=== PATIENT | female | born 1965 | race Caucasian/White ===

== ENCOUNTER 2025-05-23 06:37 | Emergency (ER) | payer BC, SELFPAY ==
[2025-05-23] VITALS (14 sets, daily range): BP systolic 129–166; BP diastolic 82–107; PULSE 56–73; RESP 10–24; TEMP 36.7; O2SAT 95–98; BMI 26.2
--- OUTSIDE RECORDS SUMMARY | 2025-05-23 06:38 | XMS_ITS | Clinical Summary ---
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 08/07/2016 Active psyllium husk (METAMUCIL) 3.4 gram/5.4 gram powd Take 1 scoop by mouth once daily. 0 10/03/2018 Active calcium carbonate (CALCIUM 300 ORAL) Take 600 mg by mouth. Active lisinopriL (PRINIVIL; ZESTRIL) 20 mg tabletIndication s:HTN (hypertension), benign Take 1 Tablet (20 mg) by mouth once daily. 90 Tablet 3 10/23/2024 Active omeprazole (PRILOSEC) 20 mg Delayed-Release capsuleIndicatio ns:Gastroesophag eal reflux disease without esophagitis Take 1 Capsule (20 mg) by mouth once daily before a meal. 90 Capsule 2 10/23/2024 Active Active Problems Problem Noted Date Diagnosed Date Aneurysm of ascending aorta without rupture 12/06 Overview (12/27/2024): Repeat echo 12/2027 High-risk human papillomavir us (HPV) DNA detected in cervical specimen, not type 16 or 18 10/03/2018 Overview (01/30/2025): 09/2018 NIL/HPV+, HPV 16/18 negative 10/2019 NIL/HPV negative 10/2022 UNS/HPV+, HPV 16/18 negative 10/2023 NIL/HPV+, HPV 16/18 negative 01/2024 Holder: Biopsy Benign 10/2024 UNS/HPV negative 01/2025 NIL/HPV negative Plan: HPV-based testing due 01/2028 Non-celiac gluten sensitivity 07/26/2017 Colon polyps 02/17/2016 Right knee pain 02/17/2016 Family history of colonic polyps 02/17/2010 HTN (hypertension), benign 01/18/2009 INCONTINENCE, FEMALE STRESS 12/14/2001 REFLUX, ESOPHAGEAL 12/14/2001 Resolved Problems Problem Noted Date Diagnosed Date Resolved Date Acute conjunctivitis, right eye 07/27/2015 02/17/2016 Pain in right eye 07/27/2015 02/17/2016 Stressful life event affecting family 09/21/2012 02/17/2016 TONSILLITIS - ACUTE 10/06/2005 01/19/20 09 INSECT BITE 03/30/2005 01/18/2009 HX, FAMILY, ISCHEMIC HEART DISEASE 12/14/2001 02/17/2016 Excessive or frequent menstruation 12/13/2001 12/07/2012 Immunizations Immunization Administration Dates Next Due AMB INFLUENZA, IIV4 (AGE=>6M OS) MDV (Flu Clinic Only) 06/20/2019,05/21/2017 COVID-19 vaccine (Moderna 100mcg/0.5mL) PF, MDV 01/09/2021,12/11/2020 COVID-19 vaccine (Moderna 50mcg/0.5mL) 12YO+ BIVALENT PF, MDV 06/01/2022 HepA-HepB (Twinrix) 05/14/2014 Hepatitis B (Adult) 06/11/2014 Influenza A (H1N1), Inactiva jessica (Age >=3 Years) 05/07/2013 Influenza Virus, Unspecified 05/19/2011 Influenza, CCIIV3 (Age >=6 M O) (Egg Free) 05/13/2024 Influenza, IIV3 (Age >=3 years) 05/20/2012 Influenza, IIV4 06/01/2022, 2,07/24/2020,2015,06/11/2014 Influenza, IIV4 (=>6mos) MDV 06/05/2018 Influenza,CCIIV4 PRESERV FREE 08/01/2023 Td (Age >=7 Years) 09/06/1992 Tdap 10/16/2022,09/21/2012 Typhoid (injectable) 05/14/2014 Zoster (Shingrix-RZV, recombinant) 12/19/2021, Family History Medical History Relation Name Comments Other Brother 3 Ricky Rebolledo knee replaceme nt Other Brother 4 Griffin Rebolledo colon polyps Hypertension Brother 5 Augie Rebolledo Good Health Daughter Macular degeneration Father Other Father colon polyposis /Macular Degeneration/cat Cancer-breast Maternal Aunt dx. age 50 Diabetes Maternal Grandmother Kim Macias Diabetes Mother Malissa Rebolledo Genetic Other mother: HTN, osteoporosis~father: macular degeneration~sibs: A\T\W~kids: A\T\W~grprs: MGM: DM, CVA; MGF: HTN; PGF: renal problems, at young age with that; PGM: colon CA~M Aunt: breast CA, rosacea Cancer-colon Paternal Grandmother Ember Vierboom Good Health Sister 1 Emily Adamek Hyperlipidemia Sister 2 Neredia Brown Hypertension Sister 3 Loraine Smid Thyroid Disease Sister 4 Kimmie Pumper Good Health Son 1 Good Health Son 2 Cancer-ovarian No Family History Relation Name Status Comments Brother 1 Ba Rebolledo Alive Brother 2 Jovanny Rebolledo Alive Brother 3 Ricky Rebolledo Alive Brother 4 Griffin Rebolledo Alive Brother 5 Augie Rebolledo Alive Daughter Alive Father Maternal Aunt dx. age 50 Maternal Grandfather Maternal Grandmother Kim Macias Mother Malissa Rebolledo Other Paternal Grandfather Paternal Grandmother Ember Vierboom Sister 1 Emily Adamek Alive Sister 2 Nereida Brown Alive Sister 3 Loraine Smid Alive Sister 4 Kimmie Pumper Alive Son 1 Alive Son 2 Alive Social History Tobacco Use Types Packs/Day Years Used Date Smoking Tobacco: Never Passive Smoke Exposure: Never Smokeless Tobacco: Never Tobacco Cessation:Counseling Given: Not Answered Alcohol Use Standard Drinks/Week Comments Yes 2 (1 standard drink = 0.6 oz pur e alcohol) social PHQ-2 Answer Date Recorded PHQ-2 TOTAL SCORE 0 10/16/2022 Social Connections Answer Date Recorded Do you often feel lonely or isolated from those around you? 0 10/23/2024 Financial Resource Strain Answer Date R ecorded Difficulty of Paying Living Expenses 3 10/23/2024 Difficulty of Paying Living Expenses Not on file 10/23/2024 Food Insecurity Answer Date Recorded Do you worry your food will run out before you are able to buy more? 1 10/23/2024 Transportation Needs Answer Date Record ed Does lack of transportation keep you from medica l appointments? 1 10/23/2024 Does lack of transportation keep you from work, meetings or getting things that you need? 1 10/23/2024 Housing Stability Answer Date Recorded What is your housing situation today? 1 10/23/2024 Utilities Answer Date Recorded Do you have trouble paying f or utilities (for example, heat, electricity, water, phone)? 1 10/23/2024 Comments No Sex and Gender Information Value Date Recorded Sex Assigned at Not on file Legal Sex Female 5:25 AM WELDING SPECIALIST Gender Identity Not on file Sexual Orientation Not on file Obstetrics History Para Term AB IAB SAB Ectopic Multiple Livin g Live Births 3 3 3 0 0 0 0 0 3 Date Outcome GA Total Labor Labor/2nd/3rd Weight Sex Type Anes PTL Zeinab A1 A5 Name Clin Term Term Term Last Filed Vital Signs Vital Sign Reading Time Taken Comments Blood Pressure 117/83 01/10/2025 2:18 PM CDT Pulse 71 01/10/2025 2:18 PM CDT Temperature 36.8 C (98.3 F) 04/12/2023 2:47 PM CDT Respiratory Rate 18 04/12/2023 2:47 PM CDT Oxygen Saturation 96% 01/10/2025 2:18 PM CDT Inhaled Oxygen Concentration - - Weight 81.6 kg (180 lb) 10/23/2024 8:02 AM WELDING SPECIALIST Height 171.8 cm (5' 7.62) 10/23/2024 8:02 AM CS T Body Mass Index 27.68 10/23/2024 8:02 AM WELDING SPECIALIST Plan of Treatment Health Maintenance Due Date Last Done Comments Pneumococcal series for age 50+ (1 of 1 - PCV) 2013 Hepatitis B series for 19+ ( 3 of 3 - 19+ 3-dose series) 11/11/2014 06/11/2014, 05/14/2014 Depression screening for age 12+ 10/16/2023 10/16/2022, 09/26/2021, 06/23/2021, Additional history exists Influenza Vaccine (#1) 2025 , 08/01/2023, 06/01/2022, Additional history exists BMI (ht and wt on same day) for age 18+ 10/23/2025 10/23/2024, 10/20/2023, 04/12/2023, Additional history exists Mammogram for age 45-75 10/23/2025 10/23/19, 10/20/2023, 10/16/2022, Additional history exists Pap test for age 21-65 01/11/2028 , 01/10/2025, 10/23/2024, Additional history exists Lipids for age 45-75 10/25/2028 10/25/2023, 10/16/2022, 10/16/2019, Additional history exists Colonoscopy through age 75 05/03/203005/03, 05/01/2020, 09/22/2016, Additional history exists Tetanus booster 10/16/2032 10/16/2022, 09/06, 09/06/1992 RSV vaccine for adults or (1 - 1-dose 75+ series) 2038 Hepatitis C screening for ag e 18-79 Completed 01/04/2014 Zoster (shingles) series for age 50+ Completed 12/19/2021, 09/26/2021 HIV for age 15-65 Completed 10/16/2022 COVID-19 vaccine series Completed 05/13/20 24, 08/01/2023, 06/01/2022, Additional history exists Procedures Procedure Name Priority Date/Time Associated Diagnosis Comments SCAN-COLONOSCOPY 05/03/2025 8:00 AM CDT HPV HIGH RISK Routine 01/10/2025 2:33 PM CDT Screening for cervical cancer XR MAMMO BILAT SCREENING Routine 10/23/2024 9:01 AM WELDING SPECIALIST Visit for screening mammogram LIPID PANEL W REFLEX MEASURED LDL Routine 10/25/2023 7:25 AM WELDING SPECIALIST Lipid screening LC HIV-1/O/2, 4TH GENERATION Routine 10/16/2022 2:55 PM WELDING SPECIALIST Screening for HIV (human immunodeficiency virus) ANTI HCV Routine 01/04/2014 9:30 AM CDT Annual physical exam from Last 3 Months or Most Recently Relevant to Health Maintenance Results * SCAN-COLONOSCOPY (05/03/2025 8:00 AM CDT) Narrative Procedure Note Raul Vaughn MD - 05/03/2025 7:12 AM CDT [address], [address], [place] [address] Patient Name: Nida Wilkins Gender: Female Exam Date: 05/03/2025 Visit Number: [id number] Age: 59 Years Date of : 1965 Attending MD: Raul Vaughn MD Medical Record#: [id number] Procedure: Colonoscopy Indications: Previous advanced adenomatous polyp(s) Referring MD: Referral Self Primary MD: Renee Mcdaniel MD Medications: Admitting Medications: 0.9% Normal Saline at [facility] Intra Procedure Medications: Patient received monitored anesthesia care. Complications: No immediate complications Procedure: An examination of the heart and lungs was performed and found to be withinacceptable limits. . The patient was therefore deemed a reasonablecandidate for endoscopy and sedation. The risks and benefits of the procedure were explained to thepatient.After obtaining informed consent, the patient received monitoredanesthesia care and I passed the scope without difficulty via the rectum to the ileum. The appendiceal orificeand ic valve were identified. The scope was retroflexed during theexamination The quality of the prep was excellent (Miralax/Gatorade/2tablets Bisacodyl/Magnesium Citrate). This was a complete examination throughout the entire colon. Findings: Normal finding. Location - ileum 3-cm. Polyp location: descending colon. Quantity: 1. Size: 3 mm. Polypshape: sessile. Maneuver: polypectomy was performed with a cold snare. Removal: complete. Retrieval: complete. Bleeding: none. Diverticulosis. Location: - sigmoid. Description: mild. Noinflammation present. Anal canal: external hemorrhoid(s) Remainder of the exam is normal. Impression: Colorectal polyp detected on colonoscopy Diverticulosis of colon without diverticulitis Hemorrhoids, external MD impression comments: History of advanced polyps. Preliminary Plan: Repeat colonoscopy in 5 years Recommendation Comments: Diverticulosis present: we recommend to increasefiber Intake. Foods high in fiber include fruits, vegetables, wholegrains, and legumes. Aim for 25-30 grams of fiber per day. First-degree relatives should start screening for colorectal cancer at theage of 40 rather than 45. This includes kids and siblings. Pathology Results: A: COLON, DESCENDING, POLYP: 1. Tubular adenoma 2. Negative for high grade dysplasia 3. Per the colonoscopy report: a. Polyp size: 3 mm b. Resection: Complete c. Retrieval: Complete MICROSCOPIC A: Performed SPECIAL STAINING/DEEPER A: Deeper Electronically signed by: Zeenat Madrid MD Interpreted at [facility], [address] [place] [id number] Orders Diagnostics: Procedure Comments Timeframe Assessment Colonoscopy 5 Years K63.5 Instruction(s)/Education: Instruction/Education Timeframe Assessment Colon Cancer Prevention K63.5 Colon Polyps K63.5 Diverticulosis/Diverticulitis K63.5 Hemorrhoids (External) K63.5 High Fiber Diet K63.5 Final Plan: Repeat colonoscopy in 5 years. We will attempt to contact you at appropriate intervals via U.S. mail. Wemay not be able to find you or contact you at that time, therefore youshould know that the responsibility for following our recommendation restswith you. If you don't hear from us at the time your procedure is due,please contact our office to schedule an appointment. If your contactinformation should change, please contact our office so that we can updateyour record. _Electronically signed by: Raul Vaughn MD 05/03/2025 cc: Renee Mcdaniel MD Raul Vaughn MD OTHER Final Resul t * HPV HIGH RISK (01/10/2025 2:33 PM CDT) TYPE 16 Negative Negative 01/15/2025 2:33 PM CDT [facility] TYPE 18 Negative Negative 01/15/2025 2:33 PM CDT [facility] OTHER HIGH RISK TYPES Negative Negative 01/15/2025 2:33 PM CDT [facility] Other (Cervical) Non-Blood / Unknown 01/10/2025 2:33 PM CDT 01/11/2025 3:43 PM CDT Narrative [facility] - 01/15/2025 2:33 PM CDT HPV types 16, 18, 31, 33, 35, 39, 45, 51, 52, 56, 58, 59, 66 and 68 DNA were undetectable or below the pre-set threshold. Methodology: Meryl Quang 4800 HPV Test Renee Mcdaniel MD MICROBIOLOGY Final R esult [facility] [address] [place] [address], [place] * XR MAMMO BILAT SCREENING (10/23/2024 9:01 AM WELDING SPECIALIST) Anatomical Region Laterality Modality BREASTS, Breast Left, Breast Right Bilateral Mammography Impressions 10/24/2024 3:11 PM WELDING SPECIALIST There is no radiographic evidence for malignancy. Recommend annual mammograms. MAMMOGRAM ASSESSMENT: ACR 1 Negative PATIENTS: You will also receive a letter with your examination results in an easy to read format. If you have questions about your results, please contact your referring provider. Narrative 10/24/2024 3:11 PM WELDING SPECIALIST For Patients: As a result of the 21st Century Cures Act, medical imaging exams and procedure reports are released immediately into your electronic medical record. You may view this report before your referring provider. If you have questions, please contact your health care provider. XR MAMMO BILAT SCREENING [[id number]] CLINICAL HISTORY: This is an asymptomatic 59 y.o. patient. INDICATION FOR EXAM: Mammogram Screening. TECHNIQUE: CC & MLO views were obtained. This study was evaluated with the assistance of Computer-Aided Detection. COMPARISON FILM: Yes 10/20/23 [facility] 10/16/22 [facility] FINDINGS: There are scattered areas of fibroglandular density. There are no dominant masses, suspicious micro calcifications or areas of architectural distortion. us Renee Mcdaniel MD MAMMO Final R esult * (ABNORMAL) LIPID PANEL W REFLEX MEASURED LDL (10/25/2023 7:25 AM WELDING SPECIALIST) CHOLESTEROL,TOTAL 247(H) 100 - 199 mg/dL 10/25/2023 2:26 PM [facility] Comment: Cholesterol, Total Reference Ranges Desirable <200 mg/dL Borderline 200-239 mg/dL High >=240 mg/dL TRIGLYCERIDES 180(H) <150 mg/dL 10/25/2023 2:26 PM [facility] HDL CHOLESTEROL 56 >40 mg/dL 2:26 PM [facility] NON-HDL CHOLESTEROL 191(H) <145 mg/dl 10/25/2023 2:26 PM [facility] CHOL/HDL RATIO 4.41 <4.50 10/25/2023 2:26 PM [facility] LDL CHOLESTEROL 155(H) <=130 mg/dL 10/25/2023 2:26 PM [facility] VLDL CHOLESTEROL 36(H) <=30 mg/dL 10/25/2023 2:26 PM [facility] PROVIDER ORDERED STATUS RANDOM 10/25/2023 2:26 PM [facility] Blood BLOOD SPECIMEN / Unknown Venipuncture / Unknown 10/25/2023 7:25 AM WELDING SPECIALIST 10/25/2023 7:28 AM WELDING SPECIALIST Renee Mcdaniel MD CHEMISTRY Final R esult [facility] [address] [place] [address], [place] * LC HIV-1/O/2, 4TH GENERATION (10/16/2022 2:55 PM WELDING SPECIALIST) Pathologist [facility] HIV Scr 4th Gen Non Reactive Non Reactive 10/21/2022 6:09 AM WELDING SPECIALIST [facility]) Comment: HIV Negative HIV-1/HIV-2 antibodies and HIV-1 p24 antigen were NOT detected. There is no laboratory evidence of HIV infection. Blood BLOOD SPECIMEN / Unknown Venipuncture / Unknown 10/16/2022 2:55 PM WELDING SPECIALIST 10/16/2022 2:57 PM WELDING SPECIALIST Narrative [facility] - 10/21/2022 6:09 AM WELDING SPECIALIST Performed at: [address] [place] [address] [address] [id number] Wooden Fence Erector: Rafael Rizzo MD, Phone: [phone] Renee Mcdaniel MD LABORATORY Final R esult [facility] ([facility]) [address] [place] [id number], [place] * ANTI HCV (01/04/2014 9:30 AM CDT) Pathologist [facility] HEPATITIS C ANTIBODY Non-Reacti ve Non-Reacti ve 01/04/2014 3:40 PM CDT [facility] Blood specimen (specimen) BLOOD SPECIMEN / Unknown Venipuncture / Unknown 01/04/2014 9:30 AM CDT 01/04/2014 9:30 AM CDT Narrative [facility] - 01/04/2014 3:40 PM CDT Antibodies to HCV not detected; does not exclude the possibility of exposure to HCV. us Alaina Krishnan SEND OUTS Final Result [facility] [address] [place] [address], [place] from Last 3 Months or Most Recently Relevant to Health Maintenance Insurance [facility] FED EMP [facility] FED EMP Care Teams Laundry Superintendent Relationship Specialty Start Date End Date Renee Mcdaniel MD PCP - General Family Practice 06/12/20
--- NOTE | 2025-05-23 06:51 | ED.CHESTPAIN ---
HPI - Chest Pain General Time Seen by Provider: 06:52 <Shankar Deras MD - Last Filed: 05/30/25 23:27> Date Seen: 05/23/25 <Shankar Deras MD - Last Filed: 05/30/25 23:27> Chief Complaint: Chest Pain <Shankar Deras MD - Last Filed: 05/30/25 23:27> Stated Complaint: Chest pain <Shankar Deras MD - Last Filed: 05/30/25 23:27> Time Seen by Provider: 05/23/25 06:51 <Shankar Deras MD - Last Filed: 05/30/25 23:27> Source: patient, RN notes reviewed and old records reviewed <Shankar Deras MD - Last Filed: 05/30/25 23:27> Mode of arrival: ambulatory <Shankar Deras MD - Last Filed: 05/30/25 23:27> Limitations: no limitations <Shankar Deras MD - Last Filed: 05/30/25 23:27> History of Present Illness HPI narrative: 59-year-old female who presents today with chest pain. Patient woke up with left-sided chest pain approximately 5:00 a.m., constant although quite positional, worse with movement, no shortness of breath, no cough. The pain does occasionally get worse with breathing. No nausea, vomiting, diarrhea, pain does not radiate. Pain described as sharp. <Shankar Deras MD - Last Filed: 05/30/25 23:27> Related Data Home Medications: Home Medications ?Medication ?Instructions ?Recorded ?Confirmed cetirizine 10 mg tablet 10 mg PO 04/23/22 04/23/22 lisinopril 20 mg tablet 20 mg PO 04/23/22 04/23/22 omeprazole 20 mg capsule,delayed 20 mg PO 04/23/22 04/23/22 release prednisone 20 mg tablet 60 mg PO QDAY 04/23/22 04/23/22 Previous Rx's ?Medication ?Instructions ?Recorded hydroxyzine HCl 10 mg tablet 10 mg PO TID PRN itching #30 tabs 04/23/22 triamcinolone acetonide 0.1 % 1 applic topical BID #30 grams 04/23/22 topical cream triamcinolone acetonide 0.1 % 1 applic topical BID #454 grams 04/23/22 topical cream <Shankar Deras MD - Last Filed: 05/30/25 23:27> Allergies/Adverse Reactions: Allergies Allergy/AdvReac Type Severity Reaction Status Date / Time gluten AdvReac Intermediate Abdominal Verified 05/23/25 06:48 Pain <Shankar Deras MD - Last Filed: 05/30/25 23:27> PFSH PFS Medical History: Medical History (Updated 05/23/25 @ 11:23 by Jessie Aguilera MD) Urticaria ?L50.9 - Urticaria, unspecified (ICD-10) <Shankar Deras MD - Last Filed: 05/30/25 23:27> Social History: Social History Smoking Status: Never smoker Do you use any of these nicotine containing products: None How often do you have a drink containing alcohol: never AUDIT-C Alcohol total score: 0 Non-prescribed substance use: denies use service: No <Shankar Deras MD - Last Filed: 05/30/25 23:27> Exam Narrative Exam Narrative: General: Well-developed and well-nourished, no acute distress Head: Atraumatic and normocephalic Eyes: Pupils are equal reactive, extraocular motions intact, conjunctiva clear ENT: External nose and ears are normal, posterior pharynx without erythema or exudate Neck: No midline cervical tenderness, full spontaneous range of motion the neck, trachea midline, no adenopathy Heart: Regular rate and rhythm no murmurs or thrills Lungs: Clear to auscultation bilaterally without wheezes or crackles Abdomen: Soft, nontender, nondistended with active bowel sounds Musculoskeletal: No tenderness, deformity, or edema Neurologic: Awake, alert, and oriented x3, no gross focal neurologic deficits, cranial nerves intact as tested Psych: Mood and affect are appropriate Skin: No rashes <Shankar Deras MD - Last Filed: 05/30/25 23:27> Const Vital Signs, click to edit/add: Vital Signs - 24 hr 05/23/25 06:45 05/23/25 07:55 05/23/25 08:00 Temperature 98.1 F Pulse Rate 62 Pulse Rate [Pulse Oximeter] 64 Respiratory Rate 18 15 14 Blood Pressure Blood Pressure [Right Upper Arm] 166/107 H Pulse Oximetry 98 96 Oxygen Delivery Method Room Air 05/23/25 08:15 05/23/25 08:30 05/23/25 08:45 Temperature Pulse Rate 60 63 69 Pulse Rate [Pulse Oximeter] Respiratory Rate 16 15 10 L Blood Pressure Blood Pressure [Right Upper Arm] Pulse Oximetry 97 96 97 Oxygen Delivery Method 05/23/25 09:00 05/23/25 09:15 05/23/25 09:30 Temperature Pulse Rate 56 L 56 L 64 Pulse Rate [Pulse Oximeter] Respiratory Rate 13 12 12 Blood Pressure Blood Pressure [Right Upper Arm] Pulse Oximetry 96 96 96 Oxygen Delivery Method 05/23/25 09:45 05/23/25 10:00 05/23/25 10:15 Temperature Pulse Rate 61 73 67 Pulse Rate [Pulse Oximeter] Respiratory Rate 15 24 20 Blood Pressure Blood Pressure [Right Upper Arm] Pulse Oximetry 96 96 95 Oxygen Delivery Method 05/23/25 10:30 05/23/25 10:39 Temperature Pulse Rate 62 58 L Pulse Rate [Pulse Oximeter] Respiratory Rate 15 12 Blood Pressure 129/82 Blood Pressure [Right Upper Arm] Pulse Oximetry 96 96 Oxygen Delivery Method <Shankar Deras MD - Last Filed: 05/30/25 23:27> Vital Signs - 24 hr 05/23/25 06:45 05/23/25 07:55 05/23/25 08:00 Temperature 98.1 F Pulse Rate 62 Pulse Rate [Pulse Oximeter] 64 Respiratory Rate 18 15 14 Blood Pressure Blood Pressure [Right Upper Arm] 166/107 H Pulse Oximetry 98 96 Oxygen Delivery Method Room Air 05/23/25 08:15 05/23/25 08:30 05/23/25 08:45 Temperature Pulse Rate 60 63 69 Pulse Rate [Pulse Oximeter] Respiratory Rate 16 15 10 L Blood Pressure Blood Pressure [Right Upper Arm] Pulse Oximetry 97 96 97 Oxygen Delivery Method 05/23/25 09:00 05/23/25 09:15 05/23/25 09:30 Temperature Pulse Rate 56 L 56 L 64 Pulse Rate [Pulse Oximeter] Respiratory Rate 13 12 12 Blood Pressure Blood Pressure [Right Upper Arm] Pulse Oximetry 96 96 96 Oxygen Delivery Method 05/23/25 09:45 05/23/25 10:00 05/23/25 10:15 Temperature Pulse Rate 61 73 67 Pulse Rate [Pulse Oximeter] Respiratory Rate 15 24 20 Blood Pressure Blood Pressure [Right Upper Arm] Pulse Oximetry 96 96 95 Oxygen Delivery Method 05/23/25 10:30 05/23/25 10:39 Temperature Pulse Rate 62 58 L Pulse Rate [Pulse Oximeter] Respiratory Rate 15 12 Blood Pressure 129/82 Blood Pressure [Right Upper Arm] Pulse Oximetry 96 96 Oxygen Delivery Method <Jessie Aguilera MD - Last Filed: 05/23/25 11:30> Course Course ED Course: Reviewed prior urgent care note from April 2020 for when patient was seen with urticaria, discharged with instructions for symptom management. Also reviewed prior office visit from January 2025 which was for routine physical exam, noted at that time to have history of reflux. EKG independently interpreted by me performed at 6:44 a.m. with normal sinus rhythm rate 69, normal intervals, normal axis, QTC 439, LA 150, no acute ST changes, no prior for comparison. Patient seen examined, presents today with left-sided chest pain which isn't really about for specific spots on the left side of the chest. Somewhat positional, nonradiating, causes shortness of breath when the pain is severe. No cough. On exam, hypertensive but otherwise finally stable, pain is not review do so. EKG is normal, labs ordered including troponin and D-dimer. Symptoms not typical for ACS in will evaluate for other causes of well, aspirin and troponin ordered. <Shankar Deras MD - Last Filed: 05/30/25 23:27> Reevaluation(s) Time of Reevaluation #1: 07:50 <Shankar Deras MD - Last Filed: 05/30/25 23:27> Reevaluation #1: Labs independently interpreted by me with negative troponin, normal CBC. Remaining labs including D-dimer are pending. Sign out to oncoming provider. <Shankar Deras MD - Last Filed: 05/30/25 23:27> Time of Reevaluation #2: 11:27 <Jessie Aguilera MD - Last Filed: 05/23/25 11:30> Reevaluation #2: Have reviewed with patient that her heart enzymes are remaining normal. She has no evidence of arrhythmia, D-dimer was normal. She feels better, states she can take a deep breath without pain now. We did review possibility of musculoskeletal etiologies, possible early pleurisy. Plan will be to discharge to home at this point, can try Tylenol and/or ibuprofen if needed for symptom control. We did discuss the need to follow up in clinic with her primary, consider cardiac stress testing. <Jessie Aguilera MD - Last Filed: 05/23/25 11:30> Vital Signs Vital signs: Initial Vital Signs Temperature 98.1 F 05/23/25 06:45 Temperature Source Temporal Artery Scan 05/23/25 06:45 Pulse Rate 64 05/23/25 06:45 Pulse Rhythm Regular 05/23/25 06:45 Respiratory Rate 18 05/23/25 06:45 Blood Pressure 166/107 H 05/23/25 06:45 Blood Pressure Mean 126 H 05/23/25 06:45 Blood Pressure Position Sitting 05/23/25 06:45 Pulse Oximetry 98 05/23/25 06:45 Oxygen Delivery Method Room Air 05/23/25 06:45 Vital Signs Temperature 98.1 F 05/23/25 06:45 Pulse Rate 64 05/23/25 06:45 Respiratory Rate 18 05/23/25 06:45 Blood Pressure 166/107 H 05/23/25 06:45 Pulse Oximetry 98 05/23/25 06:45 Oxygen Delivery Method Room Air 05/23/25 06:45 Temperature 98.1 F 05/23/25 06:45 Pulse Rate 58 L 05/23/25 10:39 Respiratory Rate 12 05/23/25 10:39 Blood Pressure 129/82 05/23/25 10:39 Pulse Oximetry 96 05/23/25 10:39 Oxygen Delivery Method Room Air 05/23/25 06:45 <Shankar Deras MD - Last Filed: 05/30/25 23:27> Initial Vital Signs Temperature 98.1 F 05/23/25 06:45 Temperature Source Temporal Artery Scan 05/23/25 06:45 Pulse Rate 64 05/23/25 06:45 Pulse Rhythm Regular 05/23/25 06:45 Respiratory Rate 18 05/23/25 06:45 Blood Pressure 166/107 H 05/23/25 06:45 Blood Pressure Mean 126 H 05/23/25 06:45 Blood Pressure Position Sitting 05/23/25 06:45 Pulse Oximetry 98 05/23/25 06:45 Oxygen Delivery Method Room Air 05/23/25 06:45 Vital Signs Temperature 98.1 F 05/23/25 06:45 Pulse Rate 64 05/23/25 06:45 Respiratory Rate 18 05/23/25 06:45 Blood Pressure 166/107 H 05/23/25 06:45 Pulse Oximetry 98 05/23/25 06:45 Oxygen Delivery Method Room Air 05/23/25 06:45 Temperature 98.1 F 05/23/25 06:45 Pulse Rate 58 L 05/23/25 10:39 Respiratory Rate 12 05/23/25 10:39 Blood Pressure 129/82 05/23/25 10:39 Pulse Oximetry 96 05/23/25 10:39 Oxygen Delivery Method Room Air 05/23/25 06:45 <Jessie Aguilera MD - Last Filed: 05/23/25 11:30> Medications Administered Medications: Discontinued Medications Generic Name Dose Route Start Last Admin Trade Name Freq PRN Reason Stop Dose Admin Aspirin 324 mg 05/23/25 07:01 05/23/25 07:08 Aspirin 81 Mg Tab.Chew PO 05/23/25 07:02 324 mg ONCE ONE Administration Ketorolac Tromethamine 15 mg 05/23/25 07:01 05/23/25 07:24 Ketorolac 15 Mg/Ml Inj IVP 05/23/25 07:02 15 mg ONCE ONE Administration <Shankar Deras MD - Last Filed: 05/30/25 23:27> Discontinued Medications Generic Name Dose Route Start Last Admin Trade Name Freq PRN Reason Stop Dose Admin Aspirin 324 mg 05/23/25 07:01 05/23/25 07:08 Aspirin 81 Mg Tab.Chew PO 05/23/25 07:02 324 mg ONCE ONE Administration Ketorolac Tromethamine 15 mg 05/23/25 07:01 05/23/25 07:24 Ketorolac 15 Mg/Ml Inj IVP 05/23/25 07:02 15 mg ONCE ONE Administration <Jessie Aguilera MD - Last Filed: 05/23/25 11:30> MDM - Chest Pain Lab Data Attestation: I reviewed the patient's lab results. <Jessie Aguilera MD - Last Filed: 05/23/25 11:30> Labs: Lab Results 05/23/25 05/23/25 05/23/25 Range/Units 07:01 07:25 10:01 WBC 4.37 L (4.50-11.00) K/uL RBC 4.66 (4.00-5.20) m/uL Hgb 14.0 (12.0-16.0) gm/dL Hct 40.1 (33.0-51.0) % MCV 86 (80-100) fL MCH 30 (26-34) pg MCHC 35 (32-36) gm/dL RDW Coeff of Willie 11.8 (11.5-15.5) % Plt Count 192 (140-440) K/uL Neut % (Auto) 45.3 (42.0-72.0) % Lymph % (Auto) 42.1 (20-44) % Crockett % (Auto) 8.0 (0.0-11.0) % Eos % (Auto) 3.7 (0.0-7.0) % Baso % (Auto) 0.7 (0.0-3.0) % Neut # (Auto) 2.00 (1.7-7.0) K/uL Lymph # (Auto) 1.80 (0.90-2.90) K/uL Crockett # (Auto) 0.30 (0.00-0.90) K/UL Eos # (Auto) 0.20 (0.00-0.50) K/uL Baso # (Auto) 0.00 (0.00-0.30) K/uL Abs Immat Gran (auto) 0.00 (0.00-0.30) K/uL Imm/Tot Granulo (auto) 0.2 % D-Dimer Quant (PE/DVT) < 0.27 (0.00-0.50) ug/ml Sodium 139 (135-149) mmol/L Potassium 4.5 (3.6-5.1) mmol/L Chloride 104 (96-114) mmol/L Carbon Dioxide 29 (20-32) mmol/L Anion Gap 6 L (7-15) mEq/L BUN 16 (7-30) mg/dL Creatinine 0.8 (0.5-1.5) mg/dL Estimated Creat Clear 59.60 Estimated GFR 84 ml/min Glucose 111 (60-115) mg/dL Calcium 9.3 (8.4-10.6) mg/dL Magnesium 2.2 (1.5-2.6) mg/dL NT-Pro-B Natriuret Pep 53 (See Note) pg/mL POC Troponin I 0.00 L 0.00 L (0.01-0.04) ng/ml <Shankar Deras MD - Last Filed: 05/30/25 23:27> Lab Results 05/23/25 05/23/25 05/23/25 Range/Units 07:01 07:25 10:01 WBC 4.37 L (4.50-11.00) K/uL RBC 4.66 (4.00-5.20) m/uL Hgb 14.0 (12.0-16.0) gm/dL Hct 40.1 (33.0-51.0) % MCV 86 (80-100) fL MCH 30 (26-34) pg MCHC 35 (32-36) gm/dL RDW Coeff of Willie 11.8 (11.5-15.5) % Plt Count 192 (140-440) K/uL Neut % (Auto) 45.3 (42.0-72.0) % Lymph % (Auto) 42.1 (20-44) % Crockett % (Auto) 8.0 (0.0-11.0) % Eos % (Auto) 3.7 (0.0-7.0) % Baso % (Auto) 0.7 (0.0-3.0) % Neut # (Auto) 2.00 (1.7-7.0) K/uL Lymph # (Auto) 1.80 (0.90-2.90) K/uL [place]ett # (Auto) 0.30 (0.00-0.90) K/UL Eos # (Auto) 0.20 (0.00-0.50) K/uL Baso # (Auto) 0.00 (0.00-0.30) K/uL Abs Immat Gran (auto) 0.00 (0.00-0.30) K/uL Imm/Tot Granulo (auto) 0.2 % D-Dimer Quant (PE/DVT) < 0.27 (0.00-0.50) ug/ml Sodium 139 (135-149) mmol/L Potassium 4.5 (3.6-5.1) mmol/L Chloride 104 (96-114) mmol/L Carbon Dioxide 29 (20-32) mmol/L Anion Gap 6 L (7-15) mEq/L BUN 16 (7-30) mg/dL Creatinine 0.8 (0.5-1.5) mg/dL Estimated Creat Clear 59.60 Estimated GFR 84 ml/min Glucose 111 (60-115) mg/dL Calcium 9.3 (8.4-10.6) mg/dL Magnesium 2.2 (1.5-2.6) mg/dL NT-Pro-B Natriuret Pep 53 (See Note) pg/mL POC Troponin I 0.00 L 0.00 L (0.01-0.04) ng/ml <Jessie Aguilera MD - Last Filed: 05/23/25 11:30> Discharge Plan Discharge Clinical Impression: Atypical chest pain <Shankar Deras MD - Last Filed: 05/30/25 23:27> Patient Disposition: Home, Self-Care <Shankar Deras MD - Last Filed: 05/30/25 23:27> Condition: Stable <Shankar Deras MD - Last Filed: 05/30/25 23:27> Instructions: Chest Pain (ED), Noncardiac Chest Pain (ED) <Shankar Deras MD - Last Filed: 05/30/25 23:27> Additional Instructions: Need to schedule a follow-up in clinic, preferably within 1 week. Discuss with your primary care provider possibility about doing cardiac stress testing. You can try Tylenol and/or ibuprofen per bottle directions for discomfort. In the interim, if your symptoms are worsening, have further concerns, please seek re-evaluation. <Shankar Deras MD - Last Filed: 05/30/25 23:27> Activity Level: Activity as Tolerated <Shankar Deras MD - Last Filed: 05/30/25 23:27> Activity as Tolerated <Jessie Aguilera MD - Last Filed: 05/23/25 11:30> Prescriptions: No Action prednisone 20 mg tablet 60 mg PO QDAY Patient Comments: 60 mg for 7 days, 40 mg for next 7 days omeprazole 20 mg capsule,delayed release(DR/EC) 20 mg PO lisinopril 20 mg tablet 20 mg PO cetirizine 10 mg tablet 10 mg PO triamcinolone acetonide 0.1 % cream 1 applic topical BID Qty: 30 0RF hydroxyzine HCl 10 mg tablet 10 mg PO TID PRN (Reason: itching) Qty: 30 0RF triamcinolone acetonide 0.1 % cream 1 applic topical BID Qty: 454 1RF <Shankar Deras MD - Last Filed: 05/30/25 23:27> Follow Up/Referrals: Renee Mcdaniel MD [Primary Care Provider, Family Practice] <Shankar Deras MD - Last Filed: 05/30/25 23:27> Stand Alone [facility]: [facility] Info Instructions <Shankar Deras MD - Last Filed: 05/30/25 23:27>
[2025-05-23] MEDS: ASPIRIN 81 MG TAB.CHEW 324 MG PO (07:08)
[2025-05-23 07:37] LABS: Hematocrit* 40.1 % (33.0-51.0); Hemoglobin* 14.0 gm/dL (12.0-16.0); Immature Granulocytes Pct Auto 0.2 %; Mean Corpuscular HGB Conc 35 gm/dL (32-36); Mean Corpuscular Hemoglobin 30 pg (26-34); Mean Corpuscular Volume 86 fL (80-100); RDW Coefficient of Variation % 11.8 % (11.5-15.5); Red Blood Count* 4.66 m/uL (4.00-5.20); White Blood Count* 4.37 K/uL (4.50-11.00)
[2025-05-23 07:39] LABS: Immature Granulocytes Abs Auto 0.00 K/uL (0.00-0.30); Lymphocytes Absolute Auto 1.80 K/uL (0.90-2.90); Slide Review Reflex No
[2025-05-23 07:44] LABS: Troponin, Point-of-Care* 0.00 ng/ml (0.01-0.04)
[2025-05-23 07:53] LABS: Chloride* 104 mmol/L (96-114); Sodium* 139 mmol/L (135-149)
[2025-05-23 07:54] LABS: Potassium* 4.5 mmol/L (3.6-5.1)
[2025-05-23 07:56] LABS: Anion Gap 6 mEq/L (7-15); Blood Urea Nitrogen* 16 mg/dL (7-30); Carbon Dioxide* 29 mmol/L (20-32); Creatinine* 0.8 mg/dL (0.5-1.5); Est. Creatinine Clearance* 59.60; Estimated Glomerular Filt Rate 84 ml/min
[2025-05-23 07:57] LABS: Calcium* 9.3 mg/dL (8.4-10.6); Glucose* 111 mg/dL (60-115)
[2025-05-23 08:09] LABS: NT Pro B Type NatriureticPept* 53 pg/mL (See Note)
[2025-05-23 08:12] LABS: D Dimer Quantitative* < 0.27 ug/ml (0.00-0.50)
[2025-05-23 10:17] LABS: Troponin, Point-of-Care* 0.00 ng/ml (0.01-0.04)
== END 2025-05-23 11:36 | disposition home or self-care (01) ==
PROVIDERS: Emergency Provider Family Medicine; PCP Family Medicine
DX: R07.9 Chest pain, unspecified (principal)
CPT/HCPCS: 36415; 80048; 83735; 83880; 84484; 85025; 85379; 96374; 99284; A9270; J1885